=== PATIENT | female | born 1980 | race Caucasian/White ===

== ENCOUNTER → 2017-03-10 09:06 | Outpatient (CLI) | payer OTHER ==
--- NOTE | 2017-03-10 10:58 | NUR ---
Nutrition education for bariatric surgery: S: Pt reports being heavy most of her adult life. Pt reports she started dieting when she was 7 years old. Pt has tried a number of weight loss tools over the years. Diet and exercise, Weight Watchers, [facility] weight control program, Hypnosis. Pt did have weight loss success with all of these tools; however, pt was unable to maintain weight loss long-term. Pt also regained wt after having a child. Pt is seeking weight loss to help with sleep apnea and severe depression. O: 36 year old female Ht: 5'5" Wt: 280# IBW: 125# +/-10% BMI: 46.6 PMH: Sleep apnea, severe depression A: Pt reports being an emotional eater and craving sweets. Pt also reports having trouble with portion control and states she is addicted to diet cokes. Pt and family eat out most of the time. Pt reports she is willing to work on changing these habits now before surgery. Reviewed pre/post op diet phases. Discussed meal plans for all phases; 3 ounce meal size; liquids between meals; no carbonated drinks; dumping syndrome; no straws; protein supplements and protein needs; stomach size; no sweets/high fat foods; no alcohol; daily vitamin, mineral supplements; eating out. Pt with good understanding of all phases of the diet. Pt verbalizes understanding of diet changes post-op. Pt also has realistic expectations for weight loss post-op. Pt appears motivated to make the necessary dietary changes needed to be successful with long-term weight loss and weight loss maintenance. P: Provided pt with printed diet information and RDN name and phone number. RDN will be available if needed. Thank you for the consult.
== END ==
LOC: D.FANS 03-03 09:00
DX: Z01.818 Encounter for other preprocedural examination (principal)